=== PATIENT | female | born 1930 | race Caucasian/White ===

== ENCOUNTER 2020-10-03 09:39 | Emergency (ER) | payer MEDICARE, BC ==
[~2020-10-03] VITALS: Ht 157.5 cm; Wt 69.7 kg
[2020-10-03] MEDS ORDERED: SINEMET 25-1001 EAC1 PO (10:08)
[2020-10-03] MEDS ORDERED: ATENOLOL 25 MG25 M1 PO (10:08)
[2020-10-03] MEDS ORDERED: LISINOPRIL10 MG PO (10:08)
[2020-10-03] MEDS ORDERED: SIMVASTATIN80 MG PO (10:09)
[2020-10-03] MEDS ORDERED: OMEPRAZOLE 20 M20 M1 PO (10:09)
[2020-10-03] MEDS ORDERED: ST. JOSEPH ASPI81 MG PO (10:10)
[2020-10-03] MEDS ORDERED: B12 ACTIVE1000 MCG PO (10:10)
[2020-10-03] MEDS ORDERED: LEVO-T50 MCG PO (10:11)
[2020-10-03 10:34] LABS: ABSOLUTE LYMPHOCYTES 0.6 thou/uL (0.8-5.3); ABSOLUTE MONOCYTES 0.6 thou/uL (0.0-1.2); ABSOLUTE NEUTROPHILS 6.7 thou/uL (1.6-8.1); BASOPHILS 0.3 %; EOSINOPHILS 0.3 %; HEMATOCRIT 33.8 % (37.0-47.0); HEMOGLOBIN 11.2 gm/dL (12.0-15.0); LYMPHOCYTES 7.9 %; MCH 30.2 pg (26.0-34.0); MCHC 33.2 g/dL (28.0-37.0); MPV 6.9 fl. (7.2-11.1); NUCLEATED RBCS 0 /100WBC; PLATELET COUNT* 212 thou/uL (150-400); POLYS 84.5 %; RBC 3.72 mil/uL (4.20-5.00); RDW-CV 13.8 % (10.5-14.5); WBC 7.9 thou/uL (4.0-11.0)
[2020-10-03 10:44] LABS: CALCIUM 9.6 mg/dL (8.5-10.1)
[2020-10-03 10:48] LABS: ALBUMIN 2.7 g/dL (3.4-5.0); DIRECT BILIRUBIN 0.2 mg/dL (<0.1-0.3); MAGNESIUM 2.2 mg/dL (1.8-2.4); TOTAL BILIRUBIN 0.5 mg/dL (<0.1-1.0)
[2020-10-03 11:21] LABS: URINE BILIRUBIN NEGATIVE (Negative); URINE BLOOD TRACE (Negative); URINE CLARITY CLEAR; URINE COLOR YELLOW; URINE GLUCOSE-RANDOM NEGATIVE (Negative); URINE KETONES NEGATIVE (Negative); URINE LEUKOCYTES NEGATIVE (Negative); URINE NITRITE NEGATIVE (Negative); URINE PROTEIN NEGATIVE (Negative); URINE SPECIFIC GRAVITY <= 1.005 (1.005-1.030); URINE UROBILINOGEN 0.2 E.U./dl (0.2-1.0)
[2020-10-03] MEDS ORDERED: SENNA LAXATIVE8.6 MG PO (12:45)
[2020-10-03 12:56] VITALS: BP 141/69
--- NOTE | 2020-10-03 17:05 | EKG ---
[place] [address] ELECTROCARDIOGRAM REPORT Name: GLORY GROVERYCZaki Calderon Room: [facility]#: [id number] Admission: 10/03/20 Attend Phys: Discharge: 10/03/20 Date of : [birth year] Date of Service: 10/03/20 1059 Report #: [id number] THIS REPORT FOR: //name// [facility] ED Test Date: 2020-10-03 Test Time: 10:59:13 Pat Name: BEULAH GROVER Department: Room: Gender: International Accountant: CD : 1930 Requested By: Misael Gonzalez Order Number: [id number] MD: Massimo Ashton Measurements Intervals [place] Rate: 78 P: 71 ID: [id number] QRS: 51 QRSD: 88 T: 28 QT: 373 QTc: 425 Interpretive Statements Sinus rhythm Baseline wander in lead(s) V1 No previous ECG available for comparison Electronically Signed On 10-03-2020 17:05:43 PACKAGER HEAD by Massimo Ashton [email or web address] <ELECTRONICALLY SIGNED> By: Massimo Ashton MD, [facility] 10/03/20 1705 1059 1059 Massimo Ashton MD, [facility] /EPI
== END 2020-10-03 12:57 | disposition home or self-care (01) ==
LOC: M.ERS 09:39
PROVIDERS: Emergency Medicine
DX: R53.82 Chronic fatigue, unspecified (principal); E11.65 Type 2 diabetes mellitus with hyperglycemia; Z20.828 Contact with and (suspected) exposure to other viral communicable diseases; I10 Essential (primary) hypertension; G89.29 Other chronic pain; Z88.2 Allergy status to sulfonamides; Z88.8 Allergy status to other drugs, medicaments and biological substances

== ENCOUNTER → 2020-12-18 | Outpatient (CLI) | payer MEDICARE, BC ==
[~2020-12-18] MED LIST: ATENOLOL 25 MG25 M1 PO; B12 ACTIVE1000 MCG PO; LEVO-T50 MCG PO; LISINOPRIL10 MG PO; OMEPRAZOLE 20 M20 M1 PO; SENNA LAXATIVE8.6 MG PO; SIMVASTATIN80 MG PO; SINEMET 25-1001 EAC1 PO; ST. JOSEPH ASPI81 MG PO
== END ==
LOC: M.MRI 13:09
PROVIDERS: ATTEND Psychiatry & Neurology Neuromuscular Medicine
DX: G20 Parkinson's disease (principal); F03.90 Unspecified dementia, unspecified severity, without behavioral disturbance, psychotic disturbance, mood disturbance, and anxiety

== ENCOUNTER 2021-07-20 22:48 | Inpatient (IN) | payer MEDICARE, BC ==
[~2021-07-20] VITALS: Ht 175.3 cm; Wt 72.1 kg
[2021-07-20 22:53] VITALS: BP 164/65
[2021-07-20 23:13] LABS: ABSOLUTE LYMPHOCYTES 1.1 thou/uL (0.8-5.3); ABSOLUTE MONOCYTES 0.6 thou/uL (0.0-1.2); ABSOLUTE NEUTROPHILS 3.5 thou/uL (1.6-8.1); BASOPHILS 0.7 %; EOSINOPHILS 0.9 %; HEMATOCRIT 37.2 % (37.0-47.0); HEMOGLOBIN 12.3 gm/dL (12.0-15.0); LYMPHOCYTES 20.4 %; MCH 29.9 pg (26.0-34.0); MCHC 32.9 g/dL (28.0-37.0); MONOCYTES 10.7 %; MPV 7.2 fl. (7.2-11.1); NUCLEATED RBCS 0 /100WBC; PLATELET COUNT* 211 thou/uL (150-400); POLYS 67.3 %; RBC 4.09 mil/uL (4.20-5.00); WBC 5.2 thou/uL (4.0-11.0)
[2021-07-20 23:27] LABS: URINE BILIRUBIN NEGATIVE (Negative); URINE BLOOD NEGATIVE (Negative); URINE CLARITY CLEAR; URINE COLOR YELLOW; URINE GLUCOSE-RANDOM NEGATIVE (Negative); URINE KETONES NEGATIVE (Negative); URINE LEUKOCYTES-REFLEX NEGATIVE (Negative); URINE NITRITE-REFLEX NEGATIVE (Negative); URINE PROTEIN NEGATIVE (Negative); URINE UROBILINOGEN 0.2 E.U./dl (0.2-1.0)
[2021-07-20 23:29] LABS: CALCIUM 9.2 mg/dL (8.5-10.1); CREATININE 0.7 mg/dL (0.6-1.3); POTASSIUM 3.9 mmol/L (3.5-5.1)
[2021-07-20 23:36] LABS: ALBUMIN 3.4 g/dL (3.4-5.0); MAGNESIUM 2.3 mg/dL (1.8-2.4); TOTAL BILIRUBIN 0.3 mg/dL (<0.1-1.0); TOTAL PROTEIN 7.4 g/dL (6.4-8.2)
[2021-07-21 04:00] VITALS: BP 141/63
[2021-07-21 08:00] VITALS: BP 163/72
[2021-07-21 12:00] VITALS: BP 145/58
--- NOTE | 2021-07-21 13:15 | EKG ---
[place] [address] ELECTROCARDIOGRAM REPORT Name: BEULAH GROVER Room: [address]#: [id number] Admission: 07/21/21 Attend Phys: Josefina Gannon, Discharge: Date of : [birth year] Date of Service: 07/20/21 2256 Report #: [id number] THIS REPORT FOR: //name// [facility] ED Test Date: 2021-07-20 Test Time: 22:56:06 Pat Name: BEULAH GROVER Department: Room: [facility] Gender: F Residential Subcontractor: LEE : 1930 Requested By: Trisha Ulloa Order Number: [id number] MD: Manuel Howell Measurements Intervals [place] Rate: 78 P: 79 [place]: 205 QRS: 66 QRSD: 86 T: 59 QT: 368 QTc: 420 Interpretive Statements Sinus rhythm Consider left ventricular hypertrophy Compared to ECG 10/03/2020 10:59:13 No significant changes Electronically Signed On 07-21-2021 13:14:52 CDT by Manuel Howell [email or web address] <ELECTRONICALLY SIGNED> By: Manuel Howell MD, FACC 07/21/21 1314 55 55 Manuel Howell MD, [facility] /EPI
[2021-07-21 16:00] VITALS: BP 148/56
[2021-07-21 19:44] VITALS: BP 147/59
[2021-07-22 08:02] VITALS: BP 125/55
[2021-07-22 15:41] VITALS: BP 139/67
[2021-07-22 20:40] VITALS: BP 118/52
[2021-07-22 23:57] VITALS: BP 107/48
[2021-07-23 08:00] VITALS: BP 109/49
[2021-07-23 15:33] VITALS: BP 116/58
[2021-07-23 16:26] LABS: HEMATOCRIT 35.5 % (37.0-47.0); HEMOGLOBIN 11.8 gm/dL (12.0-15.0); MCH 30.3 pg (26.0-34.0); MCHC 33.3 g/dL (28.0-37.0); MCV 90.9 fL (80.0-100.0); MPV 7.3 fl. (7.2-11.1); RBC 3.9 mil/uL (4.20-5.00); RDW-CV 13.7 % (10.5-14.5); WBC 5.5 thou/uL (4.0-11.0)
[2021-07-23 16:32] LABS: CALCIUM 8.7 mg/dL (8.5-10.1); CREATININE 0.7 mg/dL (0.6-1.3); POTASSIUM 3.7 mmol/L (3.5-5.1)
[2021-07-23 20:00] VITALS: BP 138/58
[2021-07-24 03:51] VITALS: BP 144/66
[2021-07-24 08:00] VITALS: BP 161/81
[2021-07-24] MEDS ORDERED: SINEMET 25-1001 EAC1 PO (11:24)
[2021-07-24 16:28] VITALS: BP 161/81
== END 2021-07-24 19:15 | DRG 177 ==
LOC: M.ERS 22:48 → M.TBA-ER 07-21 00:18 → M.3W 07-21 15:03
PROVIDERS: Emergency Medicine; Internal Medicine; ADMIT Internal Medicine; ATTEND Internal Medicine
DX: J15.6 Pneumonia due to other Gram-negative bacteria (principal); G93.41 Metabolic encephalopathy; F02.80 Dementia in other diseases classified elsewhere, unspecified severity, without behavioral disturbance, psychotic disturbance, mood disturbance, and anxiety; Z20.822 Contact with and (suspected) exposure to COVID-19; I10 Essential (primary) hypertension; E11.9 Type 2 diabetes mellitus without complications; M25.562 Pain in left knee; R53.81 Other malaise; G89.29 Other chronic pain; K21.9 Gastro-esophageal reflux disease without esophagitis; G31.83 Neurocognitive disorder with Lewy bodies; E07.9 Disorder of thyroid, unspecified; Z88.2 Allergy status to sulfonamides; Z88.8 Allergy status to other drugs, medicaments and biological substances; Z79.82 Long term (current) use of aspirin; Z79.899 Other long term (current) drug therapy

== ENCOUNTER 2021-07-24 17:41 | Inpatient (IN) | payer MEDICARE, BC ==
[~2021-07-24] VITALS: Ht 172.7 cm; Wt 69.9 kg
[2021-07-24 20:04] VITALS: BP 149/70
--- NOTE | 2021-07-25 02:06 | NUR ---
PT ARRIVED TO ROOM 321 AT AROUND 1935. PT WAS DIFFICULT TO GET INTO BED R/T REFUSAL TO MOVE, REFUSING BEING CLEANED UP, REFUSING TO GO TO BED OR CHAIR, AND WANTING TO GO HOME AND BE LEFT ALONE. ONCE PT WAS IN BED, CLEANED UP, AND COVERED UP PT FELL ASLEEP AND WANTED TO BE LEFT ALONE. REFUSED MEDS AND TO ANSWER MOST OF THE ADMISSION QUESTIONS, EVEN WHEN SHE ANSWERED SHE WAS CONFUSED AND FORGETFUL. ADMISSION ASSESSMENT COMPLETED CHARTED. RESTING COMFORTABLY IN BED. NO C/O PAIN OR DISCOMFORT. WILL CONTINUE TO MONITOR.
[2021-07-25 07:49] LABS: HEMATOCRIT 36.5 % (37.0-47.0); HEMOGLOBIN 12.1 gm/dL (12.0-15.0); MCHC 33.3 g/dL (28.0-37.0); MCV 90.2 fL (80.0-100.0); MPV 7.1 fl. (7.2-11.1); RBC 4.04 mil/uL (4.20-5.00); RDW-CV 13.5 % (10.5-14.5); WBC 4.6 thou/uL (4.0-11.0)
[2021-07-25 07:59] LABS: CREATININE 0.6 mg/dL (0.6-1.3); POTASSIUM 3.9 mmol/L (3.5-5.1)
[2021-07-25 08:13] VITALS: BP 132/65
--- NOTE | 2021-07-25 18:22 | NUR ---
AM ASSESSMENT AND VITAL SIGNS COMPLETED DOCUMENTED. PT WORKED WITH PT, OT AND ST THIS SHIFT AND TOLERATED WELL. PT IS ABLE TO AMBULATE TO AND FROM THE BATHROOM WITH CONTACT GUARD ASSISTENCE, GAIT BELT AND QUAD CANE. PT HAS BEEN CONTINENT OF URINE ENTIRE DAY, NO BM TODAY. FALL PRECAUTIONS AND HOURLY ROUNDING CONTINUE.
[2021-07-25 19:40] VITALS: BP 95/49
--- NOTE | 2021-07-25 19:40 | NUR ---
SITTING UP IN RECLINER WATCHING A SOCCER GAME AT A VERY LOUD VOLUME. HARD OF HEARING. STATES WATCHING THE SOCCER GAME TO BRUSH UP ON HER KINYARWANDA. THE ENVIRONMENTAL SCIENCE INSTRUCTOR OF THE GAME SPEAKS ONLY KINYARWANDA. CALL LIGHT WITHIN REACH.
--- NOTE | 2021-07-26 05:43 | NUR ---
RESTED ON/OFF. TYLENOL GIVEN AT BEDTIME FOR GENERALIZED DISCOMFORT WITH RELIEF. INCONTINENT OF URINE. SAIDA CARE GIVEN. HOURLY ROUNDING IN PROGRESS.
[2021-07-26 08:01] VITALS: BP 104/52
[2021-07-26 11:57] LABS: ABSOLUTE EOSINOPHILS 0.1 thou/uL (0.0-0.7); ABSOLUTE LYMPHOCYTES 0.8 thou/uL (0.8-5.3); ABSOLUTE MONOCYTES 0.3 thou/uL (0.0-1.2); ABSOLUTE NEUTROPHILS 2.3 thou/uL (1.6-8.1); BASOPHILS 0.5 %; EOSINOPHILS 2.8 %; HEMATOCRIT 38.9 % (37.0-47.0); HEMOGLOBIN 12.7 gm/dL (12.0-15.0); LYMPHOCYTES 23.7 %; MCH 30.1 pg (26.0-34.0); MCHC 32.8 g/dL (28.0-37.0); MCV 91.8 fL (80.0-100.0); MONOCYTES 8.8 %; MPV 7.3 fl. (7.2-11.1); NUCLEATED RBCS 0 /100WBC; PLATELET COUNT* 223 thou/uL (150-400); POLYS 64.2 %; RBC 4.23 mil/uL (4.20-5.00); RDW-CV 13.8 % (10.5-14.5); WBC 3.6 thou/uL (4.0-11.0)
[2021-07-26 12:03] LABS: CREATININE 0.8 mg/dL (0.6-1.3); POTASSIUM 3.9 mmol/L (3.5-5.1)
[2021-07-26 19:40] VITALS: BP 185/95
--- NOTE | 2021-07-26 19:40 | NUR ---
RESTING IN BED AND WATCHING BASEBALL ON TV AT AN ELEVATED VOLUME. STARTED SHOUTING THAT DIDN'T WANT HER TV VOLUME REDUCED. EXPLAINED THAT NEEDED TO REDUCE THE VOLUME WHILE I WAS CARING FOR HER SO SHE COULD HEAR ME. ALSO INFORMED PATIENT THAT WOULD TURN THE VOLUME BACK UP BEFORE LEAVING THE ROOM. ASKED PATIENT IF SHE WAS DRY AND PATIENT SHOUTED OUT THAT SHE DIDN'T CARE IF SHE WAS DRY OR NOT. PATIENT WAS COMPLAINT WITH HER SKIN BEING CHECKED FOR DRYNESS. DENIES PAIN. CALL LIGHT WITHIN REACH.
--- NOTE | 2021-07-27 04:38 | NUR ---
RESTED QUIETLY. UP X ONE TO VOID. NO FURTHER OUTBURSTS OF ANGER. PLEASANT AND COOPERATIVE. HOURLY ROUNDING IN PROGRESS.
[2021-07-27 07:12] LABS: ABSOLUTE EOSINOPHILS 0.1 thou/uL (0.0-0.7); ABSOLUTE LYMPHOCYTES 0.9 thou/uL (0.8-5.3); ABSOLUTE MONOCYTES 0.3 thou/uL (0.0-1.2); ABSOLUTE NEUTROPHILS 2.5 thou/uL (1.6-8.1); BASOPHILS 0.6 %; EOSINOPHILS 3.2 %; HEMATOCRIT 39.6 % (37.0-47.0); HEMOGLOBIN 13.2 gm/dL (12.0-15.0); LYMPHOCYTES 23.1 %; MCH 30.1 pg (26.0-34.0); MCHC 33.4 g/dL (28.0-37.0); NUCLEATED RBCS 0 /100WBC; PLATELET COUNT* 241 thou/uL (150-400); POLYS 65.1 %; RDW-CV 13.3 % (10.5-14.5); WBC 3.9 thou/uL (4.0-11.0)
[2021-07-27 07:17] LABS: CALCIUM 9.5 mg/dL (8.5-10.1); CREATININE 0.7 mg/dL (0.6-1.3)
[2021-07-27 08:00] VITALS: BP 112/60
--- NOTE | 2021-07-27 12:54 | NUR ---
Nutrition: Pt admitted to rehab unit with Parkinsons exac. Wt: 158#. Pt eating 50-100% of regular diet. Albumin 3.4. H/o DM, Parkinsons, GERD, HTN. Will follow weekly on rehab unit. Low nutrition risk.
--- NOTE | 2021-07-27 18:20 | NUR ---
ALERT AND ORIENTED X4 WITH PERIODS OF CONFUSION. UP WITH 1 ASSIST, GAIT BELT AND QUAD CANE TO BATHROOM. DENIES NEED FOR PAIN MEDICATION. CONTINENT OF BOWEL AND BLADDER. TAKES PILLS 1 AT A TIME WITHOUT DIFFICULTY. CALL LIGHT WITHIN REACH. FALL PRECAUTIONS IN PLACE, BED ALARM AND CHAIR ALARM USED.
[2021-07-27 19:00] VITALS: BP 108/48
--- NOTE | 2021-07-28 04:51 | NUR ---
ASSUMED PT CARE AT 1930. PT ALERT AND ORIENTED, POLITE AND COOPERATIVE WITH CARES. TAKES PILLS WHOLE ONE AT A TIME WITH WATER. UP TO BATHROOM SEVERAL TIMES WITH ASSIST OF ONE, GAIT BELT AND QUAD CANE. DENIED PAIN. CALL LIGHT IN REACH, BED ALARM ON FOR SAFETY. HOURLY ROUNDING IN PROGRESS, WILL CONTINUE TO MONITOR.
[2021-07-28 07:45] VITALS: BP 80/48
[2021-07-28 08:00] VITALS: BP 105/54
[2021-07-28 09:30] VITALS: BP 121/60
--- NOTE | 2021-07-28 16:58 | NUR ---
ALERT AND ORIENTED X4 WITH PERIODS OF FORGETFULNESS. DENIES NEED FOR PAIN MEDICATION. UP WITH QUAD CANE, GAIT BELT AND 1 ASSIST. B/P LOW THIS AM AND DR NOTIFIED. LAST B/P CHECK BETTER AT 121/60 WHILE SITTING UP. TELEPSYCH ORDERED BY FOR DEPRESSION. AWAITING CALL BACK FROM TELEPSYCH. CONTINENT OF BOWEL AND BLADDER. TAKES PILLS WITHOUT DIFFICULTY 1 AT A TIME. USES CALL LIGHT FOR ASSIST. IMPULSIVE AT TIMES. FALL PRECAUTIONS IN PLACE.
[2021-07-28 19:00] VITALS: BP 118/71
[2021-07-29 05:20] LABS: HEMATOCRIT 38.2 % (37.0-47.0); HEMOGLOBIN 12.6 gm/dL (12.0-15.0); MCH 29.9 pg (26.0-34.0); MCHC 32.9 g/dL (28.0-37.0); MCV 90.9 fL (80.0-100.0); MPV 6.7 fl. (7.2-11.1); RBC 4.2 mil/uL (4.20-5.00); RDW-CV 13.7 % (10.5-14.5); WBC 3.2 thou/uL (4.0-11.0)
--- NOTE | 2021-07-29 05:23 | NUR ---
ASSUMED CARES AT 1920. ALERT AND ORIENTED PLEASANT. TYLENOL GIVEN FOR NECK PAIN. MIN ASSIST WITH GAIT BELT AND CANE. UP TO BATHROOM. PT COMPLETED TELE PSYCH EVAL FOR DEPRESSION. PER PSYCH NOTE, NO MEDICATION RECOMMENDATIONS AT THIS TIME. SLEPT OFF AND ON. CALL LIGHT IN REACH AND BED ALARM ON.
[2021-07-29 05:36] LABS: CALCIUM 9.8 mg/dL (8.5-10.1); CREATININE 0.8 mg/dL (0.6-1.3); POTASSIUM 4.6 mmol/L (3.5-5.1)
[2021-07-29 08:00] VITALS: BP 95/47
--- NOTE | 2021-07-29 09:18 | NUR ---
INITIAL ASSESSMENT: PATIENT ADMITTED TO THE [facility] ON 07/24/21 WITH A DIAGNOSIS OF PARKINSONS EXACERBATION. CM SPOKE TO PT'S SON TO COMPLETE CM ASESSMENT. PT RESIDES AT HOME WITH SON. PT NORMALLY INDEPENDENT WITH ADL'S. PT OWNS, CANE, WALKER, AND WHEELCHAIR. PT'S HOME IS HANDICAP ACCESSIBLE, AND HAS A RAMP. PT HAS PAST HX OF HH WITH [facility]. PT HAS 0 HX OF SNF. CM ORIENTED THE PT AND HER SON TO THE [facility], RESIDENTS RIGHT INFO, TEAM CONFRENCE, AND TO THE ROLE OF CM. CM WILL REMAIN AVAILABLE TO ASSIST AND FOLLOW NEEDED.
--- NOTE | 2021-07-29 16:58 | NUR ---
ALERT AND ORIENTED X4 WITH PERIODS OF CONFUSION/FORGETFULNESS. DR NOTIFIED OF LOW B/P. CONTINENT OF BLADDER. UP WITH STAND BY ASSIST, GAIT BELT AND QUAD CANE. TAKES PILLS 1 AT A TIME. USING PO PAIN MEDICATION TO HELP WITH NECK PAIN. USES CALL LIGHT WHEN NEEDING ASSIST. FALL PRECAUTIONS IN PLACE.
[2021-07-29 19:30] VITALS: BP 111/52
--- NOTE | 2021-07-29 19:30 | NUR ---
SITTING UP IN RECLINER WATCHING A BASKETBALL GAME. DENIES PAIN. CALL LIGHT WITHIN REACH.
--- NOTE | 2021-07-30 05:15 | NUR ---
UP X ONE DURING THE NIGHT TO VOID. HOURLY ROUNDING IN PROGRESS.
[2021-07-30 08:00] VITALS: BP 118/55
--- NOTE | 2021-07-30 18:23 | NUR ---
AM ASSESSMENT AND VITAL SIGNS COMPLETED DOCUMENTED. PT CONTINUES TO WORK WITH PT, OT AND ST AND IS MAKING PROGRESS. NO C/O PAIN OR DISCOMFORT THIS SHIFT. PT HAD A LARGE, SOFT BOWEL MOVEMENT. FALL PRECAUTIONS AND HOURLY ROUNDING CONTINUE.
[2021-07-30 19:20] VITALS: BP 92/44
--- NOTE | 2021-07-30 19:25 | NUR ---
PATIENT FINISHING UP WITH BRUSHING HER TEETH. TYLENOL GIVEN FOR COMPLAINT OF MILD GENERALIZED DISCOMFORT. CALL LIGHT WITHIN REACH. TRANSFERS WITH STANDBY ASSIST, GAITBELT, QUAD CANE. MINIMAL ASSIST WAS NEEDED TO GET LEGS INTO BED.
--- NOTE | 2021-07-31 05:09 | NUR ---
RESTED ON/OFF. STATES BED IS UNCOMFORTABLE. UP X TWO TO VOID. INCONTINENT OF URINE X ONE. SAIDA CARE GIVEN. HOURLY ROUNDING IN PROGRESS.
[2021-07-31 07:00] VITALS: BP 104/56
--- NOTE | 2021-07-31 15:14 | NUR ---
TEAM CONFRENCE MEETING HELD THIS WEEK. PLAN TO RE-TEAM AND HAVE THE PT REMAIN ON THE UNIT FOR ANOTHER WEEK TO CONTINUE THERAPIES. PT AND SPOUSE IN AGREEMENT WITH THIS PLAN. PT PROGRESSING WELL TOWARDS GOALS. CM WILL REMAIN AVAILABLE TO ASSIST AND FOLLOW NEEDED.
--- NOTE | 2021-07-31 17:01 | NUR ---
PT WORKED WITH THERAPIES. UP WITH GAIT BELT, CANE AND STB ASSIST. PRN PAIN MEDICATION GIVEN FOR HEADACHE. PT REPORTED NO PAIN RELIEF. GIVEN CUP OF CAFFINATED COFFEE PER HER REQUEST THAT HOW SHE RELIEVES HER HEADACHE AT HOME. SON HERE TO VISIT. CALL LIGHT IN REACH. FALL PRECAUTIONS IN PLACE.
[2021-07-31 19:37] VITALS: BP 106/42
[2021-08-01 07:30] VITALS: BP 96/44
--- NOTE | 2021-08-01 18:09 | NUR ---
PT UP WITH QUAD CANE, GAIT BELT AND WALKER. PRN TYLENOL GIVEN FOR HEADACHE. DIL HERE TO VISIT. CONFUSED OFF AND ON THROUGH OUT THE DAY. CALL LIGHT IN REACH. FALL PRECAUTIONS IN PLACE.
[2021-08-01 19:00] VITALS: BP 91/40
--- NOTE | 2021-08-02 05:21 | NUR ---
ASSUMED CARE AT 1920. ALERT AND ORIENTED. FORGETFUL AT TIMES. TYLENOL GIVEN FOR NECK AND KNEE PAIN. MIN ASSIST WITH GAIT BELT AND CANE. UP TO BATHROOM. DID GET UP OUT OF BED WITHOUT CALLING X 1. SLEPT OTHERWISE. CALL LIGHT IN REACH AND BED ALARM ON.
[2021-08-02 07:40] VITALS: BP 94/46
--- NOTE | 2021-08-02 16:57 | NUR ---
PATIENT UP TO CHAIR THIS SHIFT, AMBULATING WITH CANE AND GAIT BELT WITH ASSISTANCE. UP TO SINK TO BRUSH TEETH AND PERFORM HYGIENE. NO COMPLAINTS OF PAIN. VOIDING PER TOILET.
[2021-08-02 19:37] VITALS: BP 128/72
--- NOTE | 2021-08-02 23:46 | NUR ---
ASSUMED CARE AT 1920. PATIENT RESTING IN RECINER UNTIL ABOUT 2300, THEN TO BED. TAKES PILLS WHOLE ONE AT A TIME WITH WATER WITHOUT DIFF. UP WITH GAIT BELT, CANE. SOME TREMORS OF HANDS NOTED. SLEPT IN RECLINER IN VERY UPRIGHT POSITION BEFORE GOING TO BED. ALERT AND ANSWERS QUESTIONS WELL, BUT THINKS SHE HEARS PEOPLE THREATENING EACH OTHER OUTSIDE HER ROOM AND C/O HEARING KIDS YELLING. NURSE STATION AND HALLS ARE VERY QUIET AND THERE ARE NO KIDS VISITING NOR IS THERE YELLING IN REALITY. ADDITIONALLY, PATIENT ALSO STATES THAT SHE DOES NOT HEAR WELL. TURNS SELF. HOURLY ROUNDS CONTINUE. BED ALARM ON.
--- NOTE | 2021-08-03 05:55 | NUR ---
RESTED IN BED THROUGH THE NIGHT WITH DOOR CLOSED AND BED ALARM ON. NO C/O PAIN. UP WITH GAIT BELT, CANE. VOIDS PER TOILET. HOURLY ROUNDS CONTINUE. BED ALARM ON. CALL LITE IN REACH.
[2021-08-03 07:00] VITALS: BP 93/54
[2021-08-03 07:40] VITALS: BP 93/54
--- NOTE | 2021-08-03 16:28 | NUR ---
PATIENT COMPLETED THERAPIES THIS SHIFT ORDERED. UP WITH ASSISTANCE UTILZING CANE AND GAIT BELT. VOIDING PER TOILET. NO BM NOTED X 4 DAYS. PATIENT ON SCHED SENNA, ORDERS RECEIVED FOR MIRALAX PER PATIENT REQUEST AND IF NO STOOL PRODUCED THEN MAG CITRATE TO BE GIVEN. DR. DELUNA NOTIFIED OF SOFT BP THIS AM, LISINOPRIL DC'D PER DR. DELUNA.
[2021-08-03 19:00] VITALS: BP 100/52
--- NOTE | 2021-08-04 05:06 | NUR ---
ASSUMED CARES AT 1920. ALERT AND ORIENTED. MIN ASSIST WITH GAIT BELT AND CANE. UP TO BATHROOM. PT DRANK HALF OF MAG CITRATE BEFORE BEDTIME. HAD SMALL BM AND STATED THAT FELT BETTER AFTERWARDS. SLEPT OFF AND ON. CALL LIGHT IN REACH AND BED ALARM ON.
[2021-08-04 08:00] VITALS: BP 108/51
--- NOTE | 2021-08-04 18:30 | NUR ---
ALERT AND ORIENTED X4 WITH PERIODS OF FORGETFULNESS. UP WITH QUAD CANE, GAIT BELT AND 1 ASSIST TO BATHROOM. DENIES NEED FOR PAIN MEDICATION. CONTINENT OF BOWEL AND BLADDER. TAKES PILLS 1 AT A TIME. USES CALL LIGHT FOR ASSIST. FALL PRECAUTIONS IN PLACE.
[2021-08-04 19:00] VITALS: BP 122/51
--- NOTE | 2021-08-04 20:00 | NUR ---
SITTING UP IN RECLINER WATCHING TV. DENIES DISCOMFORT. CALL LIGHT WITHIN REACH. AMBULATES TO THE BATHROOM WITH STAND BY VARSHA HALLMAN CANE.
[2021-08-05 04:56] LABS: HEMATOCRIT 34.4 % (37.0-47.0); HEMOGLOBIN 11.5 gm/dL (12.0-15.0); MCH 30.1 pg (26.0-34.0); MCHC 33.6 g/dL (28.0-37.0); MCV 89.9 fL (80.0-100.0); RBC 3.82 mil/uL (4.20-5.00); RDW-CV 13.5 % (10.5-14.5); WBC 3.5 thou/uL (4.0-11.0)
[2021-08-05 05:15] LABS: CALCIUM 9.4 mg/dL (8.5-10.1); CREATININE 0.7 mg/dL (0.6-1.3); POTASSIUM 4.6 mmol/L (3.5-5.1)
--- NOTE | 2021-08-05 05:32 | NUR ---
RESTED QUIETLY. HAS BEEN UP IN RECLINER SINCE ABOUT 0445. UP TO THE BATHROOM THIS MORNING TO VOID. HOURLY ROUNDING IN PROGRESS.
[2021-08-05 07:22] VITALS: BP 117/58
--- NOTE | 2021-08-05 18:26 | NUR ---
AM ASSESSMENT AND VITAL SIGNS COMPLETED DOCUMENTED. PT WORKED WITH PT, OT AND ST TODAY. DISCHARGE GOALS HAVE BEEN MET. ECG TECHNICIAN IS ATTEMPTING TO SCHEDULE FAMILY TRAINING TOMMORROW WITH DISCHARGE FOLLOWING. FALL PRECAUTIONS AND HOURLY ROUNDING CONTINUE.
[2021-08-05 19:00] VITALS: BP 100/51
--- NOTE | 2021-08-06 04:33 | NUR ---
ASSUMED PT CARE AT 1930. PT SITTING UP IN RECLINER AT SHIFT CHANGE. PT ALERT AND ORIENTED X4, POLITE AND COOPERATIVE WITH CARES. TAKES PILLS ONE AT A TIME WITH WATER. UP TO BATHROOM TO VOID WITH SBA, GAIT BELT AND QUAD CANE. PT CALLS OUT FOR ASSIST RATHER THAN USE CALL LIGHT. FAMILY TRAINING TO TAKE PLACE TODAY FOLLOWED BY PT DISCHARGE HOME. PT UP FOR THE DAY AT 0400, SITTING IN RECLINER DRINKING COFFEE. CALL LIGHT IN REACH, BED ALARM ON FOR SAFETY. HOURLY ROUNDING IN PROGRESS, WILL CONTINUE TO MONITOR.
[2021-08-06 08:10] VITALS: BP 104/52
[2021-08-06 08:56] VITALS: BP 104/52
[2021-08-06 10:07] VITALS: BP 104/52
--- NOTE | 2021-08-06 10:39 | NUR ---
AM ASSESSMENT AND VITAL SIGNS COMPLETED DOCUMENTED. PT HAS MET HER DISCHARGE GOALS. PT'S FAMILY HERE THIS AM AND FAMILY TRAINING HAS BEEN COMPLETED. DISCHARGE INSTRUCTIONS PROVIDED TO PT AND FAMILY. PT AND BELONGINGS TRANSPORTED TO EXIT, ASSISTED INTO CAR, DISCHARGED HOME IN STABLE CONDITION.
--- NOTE | 2021-08-06 17:03 | NUR ---
PLAN FOR THE PT TO D/C HOME TODAY WITH HH. PT'S SON INFORMS OF CHOICE OF [facility]. [facility] ACCEPTED PT AND WILL CONTACT HER SON TO ARRANGE A TIME TO VISIT. PT'S SON TO PROVIDE PT TRANSPORT HOME. CM WILL REMAIN AVAILABLE TO ASSIST AND FOLLOW NEEDED. [facility] PHONE: [phone]
== END 2021-08-06 10:41 | disposition home health service (06) | DRG 70 ==
LOC: M.REH 17:41
PROVIDERS: Internal Medicine; ADMIT Physical Medicine & Rehabilitation; ATTEND Physical Medicine & Rehabilitation
DX: G93.41 Metabolic encephalopathy (principal); J69.0 Pneumonitis due to inhalation of food and vomit; I10 Essential (primary) hypertension; K21.9 Gastro-esophageal reflux disease without esophagitis; E11.9 Type 2 diabetes mellitus without complications; G89.29 Other chronic pain; M25.562 Pain in left knee; G20 Parkinson's disease; R91.1 Solitary pulmonary nodule; F02.80 Dementia in other diseases classified elsewhere, unspecified severity, without behavioral disturbance, psychotic disturbance, mood disturbance, and anxiety; I95.9 Hypotension, unspecified; R26.9 Unspecified abnormalities of gait and mobility; G25.81 Restless legs syndrome; R53.81 Other malaise; Z88.2 Allergy status to sulfonamides